=== PATIENT | female | born 1975 ===

== ENCOUNTER 2017-01-07 05:51 | Day surgery (SDC) | payer BC ==
[2017-01-06 10:06] VITALS: BMI 30.8
[2017-01-07 07:03] LABS: BASO % 0.5 % (0.0-2.0); EOS # 0.1 K/uL (0.0-0.7); EOS % 1.1 % (0.0-4.0); HEMATOCRIT 39.2 % (34.0-47.0); LYMPH # 1.5 K/uL (1.0-4.3); MEAN CELL VOLUME 80.2 fl (81.0-99.0); MEAN CORPUSCULAR HEMOGLOBIN 26.6 pg (27.0-31.0); MEAN CORPUSCULAR HGB CONC 33.2 g/dL (33.0-37.0); MEAN PLATELET VOLUME 9.4 fl (7.2-11.7); MONO # 0.5 K/uL (0.0-0.8); MONO % 6.6 % (0.0-10.0); NEUT # 4.8 K/uL (1.8-7.0); NEUT % 69.8 % (50.0-75.0); NRBC % 0.1 % (0.0-0.0); WHITE BLOOD COUNT 6.9 K/uL (4.8-10.8)
[2017-01-07 07:06] LABS: BLOOD UREA NITROGEN 10 mg/dl (7-17); CARBON DIOXIDE 23 mmol/L (22-30); CHLORIDE 106 mmol/L (98-107); GFR AFRICAN-AMERICAN > 60; GLUCOSE,RANDOM 90 mg/dL (65-105); POTASSIUM 4.1 MMOL/L (3.6-5.0); SODIUM 140 mmol/l (132-148)
[2017-01-07 07:07] VITALS: RESP 18
[2017-01-07] MEDS ORDERED: Lactated Ringer's 1,000 ML IV ONE (07:10)
[2017-01-07] MEDS ORDERED: Propofol 10 mg/ml Inj (20 ML) ONE (07:47)
[2017-01-07] MEDS ORDERED: Midazolam 2 MG/2 ML VIAL ONE (07:47)
[2017-01-07] MEDS ORDERED: Lactated Ringer's 1,000 ML IV SCH (08:35)
[2017-01-07] MEDS ORDERED: Oxycodone/Acetaminophen 5/325 mg Tab PO PRN (08:54)
[2017-01-07 10:50] VITALS: O2SAT 100
[2017-01-07 13:25] VITALS: BP 119/87; PULSE 62; TEMP 97.8
--- NOTE | 2017-01-08 06:23 | OP ---
PROCEDURE DATE: 01/07/2017 PREOPERATIVE DIAGNOSIS: The patient is a 41-year-old female with endometrial polyp. POSTOPERATIVE DIAGNOSIS: The patient is a 41-year-old female with endometrial polyp. PROCEDURE: Hysteroscopic polypectomy. SURGEON: Tabatha Boyle MD SENIOR PRODUCTION SUPERVISOR: None. ANESTHESIOLOGIST: Jesus Alberto Santana MD TYPE OF ANESTHESIA: General anesthesia with LMA. IV FLUIDS: 500 mL. URINE OUTPUT: None. HYSTEROSCOPIC FLUID: Normal saline, in 2455 mL, out 1900 mL. FLUID DEFICITS: Normal saline, 555 mL. SPECIMEN: One endometrial polyp. COMPLICATIONS: None. ESTIMATED BLOOD LOSS: Less than 10 mL. FINDINGS: 1. Anteverted uterus. 2. Uterus sounded to 8 cm. 3. Normal-appearing tubal ostia bilaterally. 4. Endometrial polyp in the right cornua. 5. Hemostasis. DESCRIPTION OF PROCEDURE: After proper consent was obtained and all questions were answered, the patient was transferred to operating room #4 at the [facility] operating room. Adequate general anesthesia with LMA was administered without incident. The patient was placed into the modified dorsal lithotomy position using Richard stirrups with correct positioning to prevent nerve injury. Prior to induction of anesthesia, sequential compression devices were applied bilaterally to patient's lower extremities. A sterile prep and drape was performed with Betadine, and attention was directed to the perineum. A weighted speculum was placed in the posterior fornix of the vagina and a right angle retractor into the anterior fornix of the vagina. The cervix was visualized and grasped with anterior lip with a single-tooth tenaculum. The cervix was serially dilated using the Kofi dilator to accommodate the operative hysteroscope. The hysteroscope was prepared with normal saline and then advanced through the uterine cavity under direct visualization. The uterine cavity was surveyed with findings as noted above. A 1-cm polyp was noted in the right cornual region. The hysteroscopic scissors were used to sever the polyps from the uterine sidewall and hysteroscopic graspers were used to remove the polyp and fragments from the uterine cavity. These were sent to pathology. The uterine cavity was surveyed once more, noted to be normal at all sides with a normal uterine shape. The hysteroscope was then removed. The single-tooth tenaculum was removed from the cervix and hemostasis was achieved using sponge sticks. The patient was transferred to the recovery room in good condition and will follow up with Dr. Tabatha Boyle as directed. Tabatha Boyle MD
== END 2017-01-07 13:20 | disposition home or self-care (01) ==
LOC: H.OPSURG 05:51
PROVIDERS: ATTEND Obstetrics & Gynecology Reproductive Endocrinology
DX: N84.0 Polyp of corpus uteri (principal); K29.70 Gastritis, unspecified, without bleeding
CPT/HCPCS: 36415; 58558; 80048; 84703; 85025; 88305; J2001; J2175; J2250; J2405; J2704; J3010; J7030; J7120